=== PATIENT | male | born 1960 | race Caucasian/White ===

== ENCOUNTER → 2017-06-27 | Outpatient (CLI) | payer OTHER ==
[~2017-06-27] MED LIST: DIAZEPAM 10 MG TABLET.; IOHEXOL 350 MG/ML 100 ML VIAL.; IOHEXOL 350 MG/ML 50 ML VIAL.; IV NORMAL SALINE 1000ML BAG 1,000 ML; LIDOCAINE 1% Multi-Dose 20 ML VIAL.; MIDAZOLAM HCL/PF 2 MG/2 ML VIAL.; fentaNYL PF VIAL 100 MCG/2 ML VIAL
== END | disposition home or self-care (01) ==
LOC: PCVCINTER 11:04
DX: I25.10 Atherosclerotic heart disease of native coronary artery without angina pectoris (principal); E78.00 Pure hypercholesterolemia, unspecified; E78.5 Hyperlipidemia, unspecified; E11.9 Type 2 diabetes mellitus without complications; I48.91 Unspecified atrial fibrillation; I50.9 Heart failure, unspecified
CPT/HCPCS: 93458; 99152; 99153; C1760; C1769; C1894; J1644; J2250; J3010; J7030; Q9967

== ENCOUNTER → 2017-07-05 | Outpatient (CLI) | payer OTHER ==
[~2017-07-05] MED LIST changes: +BENZOCAINE ONE 20% MUCOSAL SPRAY.; -DIAZEPAM 10 MG TABLET.; -IOHEXOL 350 MG/ML 100 ML VIAL.; -IOHEXOL 350 MG/ML 50 ML VIAL.; -LIDOCAINE 1% Multi-Dose 20 ML VIAL.
== END | disposition home or self-care (01) ==
LOC: PCVCINTER 08:38
DX: I34.0 Nonrheumatic mitral (valve) insufficiency (principal); I48.91 Unspecified atrial fibrillation
CPT/HCPCS: 92960; 93312; 93325; 99152; 99153; J2250; J3010; J7030

== ENCOUNTER → 2018-10-30 | Outpatient (CLI) | payer OTHER ==
--- NOTE | 2018-10-30 12:26 | PCVCIMAG ---
APPROVED REPORT Study performed: 10/30/2018 11:03:57 EXAM: Comprehensive 2D, Doppler, and color-flow Echocardiogram Patient Location: Echo lab Status: routine BSA: 2.40 HR: 59 bpmBP: 160/112 mmHg Rhythm: NSR Other Information Study Quality: Technically Difficult Risk Factors: Cardiac Risk Factors: HTN, Hyperlipidemia, DM Indications Atrial Fibrillation 2D Dimensions IVSd: 15.17 (7-11mm)LVOT Diam: 22.30 (18-24mm) LVDd: 36.21 mm PWd: 11.30 (7-11mm)Ascending Ao: 41.10 (22-36mm) LVDs: 30.16 (25-40mm) Left Atrium: 47.75 (27-40mm) Aortic Root: 35.60 mm LV Single Plane 4CH: 52.78 % LV Single Plane 2CH: 54.87 % Biplane EF: 49.5 % Volumes Left Atrial Volume (Systole) Single Plane 4CH: 52.03 mLSingle Plane 2CH: 58.96 mL LA ESV Index: 24.00 mL/m2 Aortic Valve AoV Peak Neftaly.: 1.40 m/s AO Peak Gr.: 7.84 mmHgLVOT Max P.47 mmHg LVOT Max V: 0.93 m/s ANNMARIE Vmax: 2.60 cm2 Mitral Valve E/A Ratio: 0.8 MV Decel. Time: 313.20 ms MV E Max Neftaly.: 0.65 m/s MV A Neftaly.: 0.81 m/s TDI E/Lateral E': 8.13E/Medial E': 16.25 Medial E' Neftaly.: 0.04 m/s Lateral E' Neftaly.: 0.08 m/s Pulmonary Valve PV Peak Gr.: 2.21 mmHg Pulmonary Vein P Vein S: 0.53 m/sP Vein A: 0.31 m/s P Vein D: 0.33 m/sP Vein A Dur.: 86.5 msec P Vein S/D Ratio: 1.61 Tricuspid Valve TR Peak Neftaly.: 2.30 m/s TR Peak Gr.: 21.13 mmHg Left Ventricle The left ventricle is normal size. There is normal LV segmental wall motion. There is normal left ventricular wall thickness. Left ventricular systolic function is normal. The left ventricular ejection fraction is within the normal range. LVEF is 55-60%. Mild diastolic dysfunction is present (impaired relaxation pattern). Right Ventricle The right ventricle is normal size. The right ventricular systolic function is normal. Atria Left atrium is borderline dilated. The right atrium size is normal. Aortic Valve The aortic valve is mildly sclerotic. No aortic regurgitation is present. There is no aortic valvular stenosis. Mitral Valve The mitral valve is normal in structure. There is no mitral valve regurgitation noted. No evidence of mitral valve stenosis. Tricuspid Valve The tricuspid valve is normal in structure. Trace tricuspid regurgitation. Pulmonary artery pressure is 29mmHg. Pulmonic Valve The pulmonary valve is normal in structure. Trace pulmonic regurgitation. Great Vessels The aortic root is normal in size. Mild dilatation of the ascending aorta (4.1 cm) IVC is normal in size and collapses >50% with inspiration. Pericardium There is no pericardial effusion. <Conclusion> Left ventricular systolic function is normal. There is normal LV segmental wall motion. LVEF is 55-60%. Mild diastolic dysfunction The aortic valve is mildly sclerotic. No aortic regurgitation or stenosis. The mitral valve is normal in structure. No mitral valve regurgitation. Trace tricuspid regurgitation. Pulmonary artery pressure of 30 mmHg. Mild dilatation of the ascending aorta (4.1 cm) There is no pericardial effusion.
== END | disposition home or self-care (01) ==
LOC: PCVCIMAG 10:54
PROVIDERS: ATTEND Internal Medicine
DX: I48.0 Paroxysmal atrial fibrillation (principal); I11.0 Hypertensive heart disease with heart failure; I50.32 Chronic diastolic (congestive) heart failure; I42.0 Dilated cardiomyopathy
CPT/HCPCS: 93306